=== PATIENT | female | born 1960 | race Two or more races ===

== ENCOUNTER 2023-06-02 05:15 | Day surgery (SDC) | payer OTHER ==
[2023-05-28 10:58] LABS: HEMATOCRIT 43.4 % (36.0-45.00); HEMOGLOBIN 14.5 g/dL (12.0-15.00); MEAN CELL VOLUME 87.1 fL (80.00-100.00); MEAN CORPUSCULAR HEMOGLOBIN 29.1 pg (27.00-32.0); MEAN CORPUSCULAR HGB CONC 33.4 g/dl (32.0-36.0); PLATELET COUNT 254 K/uL (150-450); RED BLOOD COUNT 4.98 M/uL (4.00-6.00); RED CELL DISTRIBUTION WIDTH 15.1 % (11.5-14.5)
[2023-05-28 10:59] LABS: PH,URINE 5.5 (5.0-8.0); URINE APPEARANCE Clear; URINE BILIRRUBIN Negative (NEGATIVE); URINE BLOOD Negative; URINE COLOR Yellow; URINE GLUCOSE Negative (NEGATIVE); URINE LEUKOCYTE Negative; URINE NITRATE Negative; URINE PROTEIN Negative (NEGATIVE); URINE UROBILINOGEN 0.2 E.U./dl
[2023-05-28 11:04] LABS: URINE BACTERIA 93.2 uL (0.0-1933); URINE RBC 12.3 uL (0.0-20.8); URINE WBC 2.3 uL (0.0-23.2)
[2023-05-28 11:28] LABS: PARTIAL THROMBOPLASTIN TIME 26.5 SECONDS (22.0-34.0); PROTHROMBIN TIME 10.5 SECONDS (9.0-11.5)
[2023-05-28 11:37] LABS: BILIRUBIN TOTAL 0.77 mg/dL (0.3-1.2); CALCIUM 9.6 mg/dL (8.5-10.1); CREATININE SERUM 0.74 mg/dL (0.55-1.02); GFR 78.76; GLOBULINA 3.5 G/DL (2.4-3.5); POTASSIUM 3.97 mEq/L (3.5-5.1); TOTAL PROTEIN 7.5 gm/dL (6.4-8.2)
[~2023-06-02 05:15] MED LIST: COLAZAL750 MG PO; CRESTOR20 MG PO; FOLIC A PO; PREDNISONE PO; PROBIOT PO; XALATAN; [UNRECOGNIZED DRUG - OTHER] PO
== END 2023-06-02 16:00 | disposition home or self-care (01) ==
LOC: CIR.AMB 05:15
PROVIDERS: ATTEND Otolaryngology Otology & Neurotology
DX: H66.92 Otitis media, unspecified, left ear (principal); H72.92 Unspecified perforation of tympanic membrane, left ear; Z20.822 Contact with and (suspected) exposure to COVID-19; Z88.6 Allergy status to analgesic agent; E16.2 Hypoglycemia, unspecified